=== PATIENT | female | born 1990 | race Caucasian/White ===

== ENCOUNTER 2016-09-12 14:21 | Outpatient (RCR) | payer OTHER ==
[~2016-09-12 14:21] MED LIST: /DIVA50TA PO; ALBU17IN INH; ALBUPOW9 INH; BACL10TA2 PO; CELE40TA PO; CIPR500T89 PO; FLAG500T PO; HYDR-3713 PO; KLON0.5T PO; KLON1TAB PO; LITH300C PO; LITH300T PO; LITHIUM PO; OLAN20TA PO; OMEP40CA2 PO; PRAZ1CAP PO; SYMB80AE INH; TIZA4CAP3 PO; TRAZ150T PO; TRAZ50TA4 PO; TYLE325T5 PO; ULTR50TA PO; WELL75TA PO; ZOFR4TAB3 PO; ZYPR10TA PO; ZYPR15TA PO
== END 2016-10-07 | disposition home or self-care (01) ==
LOC: M OUTALCOH 14:21
PROVIDERS: ATTEND Psychiatry & Neurology Psychiatry
DX: F10.20 Alcohol dependence, uncomplicated (principal); F11.20 Opioid dependence, uncomplicated; F12.20 Cannabis dependence, uncomplicated; F16.20 Hallucinogen dependence, uncomplicated

== ENCOUNTER → 2016-12-29 | Outpatient (CLI) | payer OTHER | LOC: M OUTALCOH 09:02 | PROVIDERS: ATTEND Psychiatry & Neurology Psychiatry | DX: Z13.9 Encounter for screening, unspecified (principal); F10.20 Alcohol dependence, uncomplicated; F12.20 Cannabis dependence, uncomplicated; F15.20 Other stimulant dependence, uncomplicated ==

== ENCOUNTER → 2017-01-08 | Outpatient (REF) | payer OTHER ==
[2017-01-08 12:55] LABS: ALBUMIN 3.9 GM/DL (3.2-5.2); ALBUMIN/GLOBULIN RATIO 1.11 (1.00-1.93); ALKALINE PHOSPHATASE 71 U/L (45-117); ALT/SGPT 16 U/L (12-78); AST/SGOT 13 U/L (15-37); BILIRUBIN,DIRECT < 0.1 MG/DL (0.0-0.2); BILIRUBIN,TOTAL 0.3 MG/DL (0.2-1.0); TOTAL PROTEIN 7.4 GM/DL (6.4-8.2)
[2017-01-12 10:09] LABS: HEPATITIS C QUANTITATION HCV Not Detected IU/mL (.)
== END ==
LOC: M LABDRAWP 11:26
PROVIDERS: ATTEND Nurse Practitioner Family
DX: R76.8 Other specified abnormal immunological findings in serum (principal)

== ENCOUNTER 2017-01-29 09:00 | Outpatient (RCR) | payer OTHER | END 2017-02-04 | LOC: M OUTALCOH 09:00 | PROVIDERS: ATTEND Psychiatry & Neurology Psychiatry | DX: F10.20 Alcohol dependence, uncomplicated (principal); F12.20 Cannabis dependence, uncomplicated; F15.20 Other stimulant dependence, uncomplicated; F17.200 Nicotine dependence, unspecified, uncomplicated ==

== ENCOUNTER 2017-02-27 10:00 | Outpatient (RCR) | payer MEDICAID ==
[~2017-02-27 10:00] MED LIST changes: +TRAZ50TA11 PO; -TRAZ50TA4 PO
== END 2017-03-06 | disposition home or self-care (01) ==
LOC: M OUTALCOH 10:00
PROVIDERS: ATTEND Psychiatry & Neurology Psychiatry
DX: F10.20 Alcohol dependence, uncomplicated (principal); F12.20 Cannabis dependence, uncomplicated; F15.20 Other stimulant dependence, uncomplicated; F17.200 Nicotine dependence, unspecified, uncomplicated

== ENCOUNTER → 2017-03-27 | Outpatient (CLI) | payer MEDICAID, OTHER ==
--- NOTE | 2017-03-27 19:49 | REP ---
KUB ABDOMEN AND PELVIS: KUB film of the abdomen and pelvis is performed. There is mild scattered fecal material throughout the colon. No dilated small bowel loops are seen. There is a phlebolith in the left pelvis. Visualized osseous structures are unremarkable. IMPRESSION: Mild fecal retention with no evidence of bowel obstruction. Signed by Moncho Alejandra MD 03/27/2017 08:21 P
== END ==
LOC: M WUC 17:42
PROVIDERS: ATTEND Physician Assistant
DX: K59.00 Constipation, unspecified (principal)

== ENCOUNTER 2017-04-02 09:00 | Outpatient (RCR) | payer MEDICAID | END 2017-04-06 | LOC: M OUTALCOH 09:00 | PROVIDERS: ATTEND Psychiatry & Neurology Psychiatry | DX: F10.20 Alcohol dependence, uncomplicated (principal); F12.20 Cannabis dependence, uncomplicated; F15.20 Other stimulant dependence, uncomplicated; F17.200 Nicotine dependence, unspecified, uncomplicated ==

== ENCOUNTER 2017-05-05 10:00 | Outpatient (RCR) | payer MEDICAID | END 2017-05-07 | LOC: M OUTALCOH 10:00 | PROVIDERS: ATTEND Psychiatry & Neurology Psychiatry | DX: F10.20 Alcohol dependence, uncomplicated (principal); F12.20 Cannabis dependence, uncomplicated; F15.20 Other stimulant dependence, uncomplicated; F17.200 Nicotine dependence, unspecified, uncomplicated ==

== ENCOUNTER 2017-05-29 10:00 | Outpatient (RCR) | payer MEDICAID | END 2017-06-06 | LOC: M OUTALCOH 10:00 | PROVIDERS: ATTEND Psychiatry & Neurology Psychiatry | DX: F10.20 Alcohol dependence, uncomplicated (principal); F12.20 Cannabis dependence, uncomplicated; F15.20 Other stimulant dependence, uncomplicated; F17.200 Nicotine dependence, unspecified, uncomplicated ==

== ENCOUNTER → 2017-12-01 | Outpatient (CLI) | payer OTHER, MEDICAID | LOC: M WUC 18:06 | DX: M79.644 Pain in right finger(s) (principal); M79.89 Other specified soft tissue disorders | CPT/HCPCS: 73140 ==

== ENCOUNTER → 2018-10-11 | Outpatient (CLI) | payer OTHER ==
[~2018-10-11] MED LIST changes: -OLAN20TA PO; +OLAN20TA14 PO; +TIZA4CAP PO; -TIZA4CAP3 PO; +TRAZ-160 PO; -TRAZ50TA11 PO; +ZOFR4TAB14 PO; -ZOFR4TAB3 PO
--- NOTE | 2018-10-12 02:30 | REP ---
Clinical: Bilateral hand pain Technique: AP, lateral, bilateral oblique views right and left hand . Findings: The osseous structures and joint spaces of the bilateral hands appear normal. No obvious acute fracture or dislocation. Moderate bilateral soft tissue swelling is appreciated on the right hand primarily noted involving the second and third digits and more diffusely noted on the left hand. No subcutaneous emphysema or radiodense foreign body. Impression: Moderate bilateral soft tissue swelling Electronically Signed by Chris Machado MD 10/12/2018 02:21 A
== END ==
LOC: M WUC 11:12
PROVIDERS: ATTEND Physician Assistant
DX: M25.549 Pain in joints of unspecified hand (principal)

== ENCOUNTER → 2019-06-22 | Outpatient (REF) | payer OTHER ==
[~2019-06-22] MED LIST changes: -/DIVA50TA PO; +CLON1TAB8; +DEPA1TAB3 PO; +HYDR100C; +RISP1TAB3 PO; -TRAZ-160 PO; +TRAZ-252 PO; +VENTAER INH
[2019-06-24 19:25] LABS: HPV HYBRID CAPTURE II Negative (Negative)
== END ==
LOC: M SFHCWAGY 11:05
PROVIDERS: ATTEND Nurse Practitioner Family
DX: R87.610 Atypical squamous cells of undetermined significance on cytologic smear of cervix (ASC-US) (principal); N76.0 Acute vaginitis; R87.619 Unspecified abnormal cytological findings in specimens from cervix uteri

== ENCOUNTER → 2019-06-22 | Outpatient (REF) | payer OTHER ==
[2019-06-22 16:27] LABS: CHLAMYDIA DNA AMPLIFICATION NEGATIVE (NEGATIVE); GC DNA AMPLIFICATION NEGATIVE (NEGATIVE)
== END ==
LOC: M SFHCWAGY 14:07
PROVIDERS: ATTEND Nurse Practitioner Family
DX: Z11.3 Encounter for screening for infections with a predominantly sexual mode of transmission (principal)

== ENCOUNTER → 2019-06-28 | Outpatient (CLI) | payer OTHER ==
--- NOTE | 2019-06-28 16:15 | REP ---
ULTRASOUND LEFT BREAST: Real-time sonographic evaluation of the left breast is performed. Reportedly there is a palpable lump in the region of 3-o'clock. Fibroglandular tissue is seen in this region. No discrete cystic or solid nodule is seen. IMPRESSION: ACR 2 benign. At the site of the reported palpable lump 3-o'clock region left breast there is fibroglandular tissue without a discrete cystic or solid mass. A negative ultrasound should not deter biopsy if there is a clinically suspicious palpable mass present. Clinical correlation and followup recommended. Electronically Signed by Moncho Alejandra MD 06/29/2019 12:29 P
== END ==
LOC: M RAD 14:46
PROVIDERS: ATTEND Nurse Practitioner Family
DX: N63.21 Unspecified lump in the left breast, upper outer quadrant (principal); N64.4 Mastodynia

== ENCOUNTER 2019-06-30 09:41 | Day surgery (SDC) | payer OTHER ==
[~2019-06-30] VITALS: Ht 158.8 cm; Wt 63.5 kg
[2019-06-30] MEDS ORDERED: LR 1,000 ML IV ONE (11:00)
[2019-06-30] MEDS ORDERED: fentaNYL 100 MCG/2 ML INJECTION (J3010) As Ordered ONE ×2 (11:46→12:44)
[2019-06-30] MEDS ORDERED: LIDOCAINE 2% INJ 100 MG/5 ML SDV (FOR ANES.) As Ordered ONE (11:46)
[2019-06-30] MEDS ORDERED: PROPOFOL 200 MG/20 ML VIAL As Ordered ONE (11:46)
[2019-06-30] MEDS ORDERED: MIDAZOLAM INJ 2 MG/2 ML VIAL (J2250) As Ordered ONE (11:47)
[2019-06-30] MEDS ORDERED: dexameTHASONE 4 MG/ML 1ML VIAL (J1100) As Ordered ONE (11:47)
[2019-06-30] MEDS ORDERED: ONDANSETRON 4MG/2ML VIAL (J2405) As Ordered ONE (11:47)
[2019-06-30] MEDS ORDERED: ROCURONIUM BROMIDE 50 MG/5 ML VIAL As Ordered ONE (11:58)
[2019-06-30] MEDS ORDERED: ACETAMINOPHEN 1000MG 100ML IV BTL (OFIRMEV) (J0131 PER 10MG) As Ordered ONE (11:58)
[2019-06-30] MEDS ORDERED: METOCLOPRAMIDE INJ 10MG/2ML VIAL (J2765) As Ordered ONE (11:59)
[2019-06-30] MEDS ORDERED: SCOPOLAMINE 1MG TRANSDERMAL PATCH As Ordered ONE (12:15)
[2019-06-30] MEDS ORDERED: SUGAMMADEX SODIUM 500 MG/5 ML VIAL (BRIDION) As Ordered ONE (12:50)
[2019-06-30] MEDS ORDERED: fentaNYL 100 MCG/2 ML INJECTION (J3010) IV PRN (13:30)
[2019-06-30] MEDS ORDERED: LR 1,000 ML IV SCH ×2 (13:30→14:31)
[2019-06-30] MEDS ORDERED: PERCOCET 5MG/325MG TAB PO PRN (13:30)
[2019-06-30] MEDS ORDERED: ONDANSETRON 4MG/2ML VIAL (J2405) IV PRN (13:30)
[2019-06-30 13:39] VITALS: BP 156/99
[2019-06-30] MEDS ORDERED: SCOPOLAMINE 1MG TRANSDERMAL PATCH TOP ONE ×2 (14:00→16:30)
--- NOTE | 2019-07-05 17:18 | RO ---
DATE OF PROCEDURE: 06/30/2019 PREOPERATIVE DIAGNOSIS: Adenoid hypertrophy. POSTOPERATIVE DIAGNOSIS: Adenoid hypertrophy. PROCEDURE PERFORMED: Adenoidectomy. SURGEON: Samson Tyson MD OPERATING ENGINEER: ANESTHESIA: General CLINICAL PREAMBLE: This 29-year-old woman presented with a history of chronic nasal congestion. Physical examination revealed adenoid hypertrophy. She had not responded to any medical therapy, including nasal steroid spray. Management options were reviewed and adenoidectomy have been discussed. Patient understood and consented to the procedure. DESCRIPTION OF PROCEDURE: Patient was identified in preoperative holding and brought to the operating room in stable condition. In supine position on the operating table, patient received general anesthesia followed by orotracheal intubation without incident. Patient was prepped and draped in the usual fashion for the procedure. The Kimberley-Beto mouth gag was inserted and suspended. The red rubber catheter was inserted via the right naris to retract the soft palate. Using a mirror, the hypertrophic adenoid tissue was visualized. Using the Coblator wand set at 7 for Coblation and 3 for coagulation, the hypertrophic adenoid tissue was ablated. Hemostasis was achieved. At the end of the procedure, sponge and instrument counts were correct. No complication was encountered. Estimated blood loss was less than 10 mL. General anesthesia was reversed, and patient was extubated and brought to the recovery room in stable condition.
== END 2019-06-30 14:13 | disposition home or self-care (01) ==
LOC: M SDC 09:41
PROVIDERS: ATTEND Otolaryngology
DX: J35.2 Hypertrophy of adenoids (principal); K58.8 Other irritable bowel syndrome; K21.9 Gastro-esophageal reflux disease without esophagitis; F41.9 Anxiety disorder, unspecified; F31.9 Bipolar disorder, unspecified; F32.9 Major depressive disorder, single episode, unspecified; J45.909 Unspecified asthma, uncomplicated; Z88.1 Allergy status to other antibiotic agents; Z88.8 Allergy status to other drugs, medicaments and biological substances; Z88.7 Allergy status to serum and vaccine; Z79.899 Other long term (current) drug therapy; F17.218 Nicotine dependence, cigarettes, with other nicotine-induced disorders
CPT/HCPCS: 42831; J0131; J1100; J2250; J2405; J2765; J3010

== ENCOUNTER 2019-09-08 01:41 | Emergency (ER) | payer OTHER, SELFPAY ==
[~2019-09-08] VITALS: Ht 157.5 cm; Wt 65.9 kg
[2019-09-08 01:58] LABS: BASO % 0.6 % (0.0-1.0); EOS # 0.2 10^3/uL (0.0-0.5); EOS % 2.2 % (0.0-3.0); HEMOGLOBIN 14.1 g/dl (12.0-15.5); LYMPH # 3.2 10^3/uL (1.5-5.0); LYMPH % 46.5 % (24.0-44.0); MEAN CORPUSCULAR HEMOGLOBIN 29.7 pg (27.0-33.0); MEAN CORPUSCULAR VOLUME 92.6 fl (80.0-96.0); MONO # 0.4 10^3/uL (0.0-0.8); MONO % 6.3 % (0.0-5.0); NEUTROPHILS % 44.1 % (36.0-66.0); PLATELET COUNT, AUTOMATED 266 10^3/uL (150-450); RED BLOOD COUNT 4.75 10^6/uL (4.00-5.40); WHITE BLOOD COUNT 6.8 10^3/uL (4.0-10.0)
[2019-09-08] MEDS ORDERED: IPRATROPIUM 0.5MG/ALBUTEROL 2.5MG INH SOL UD 3ML (DUONEB)(J7620) NEB ONE (02:15)
[2019-09-08 02:25] LABS: VENOUS BASE EXCESS 0.5 (-2.0-2.0); VENOUS HCO3 23.5 MEQ/L (23.0-27.0); VENOUS O2 SATURATION 95.2 % (60.0-80.0); VENOUS PARTIAL PRESSURE CO2 33.4 mmHg (38.0-50.0); VENOUS PARTIAL PRESSURE O2 68.4 mmHg (30.0-50.0); VENOUS PH 7.466 UNITS (7.330-7.430); VENOUS STANDARD HCO3 24.9 MEQ/L; VENOUS TOTAL CO2 24.6 MEQ/L (24.0-28.0)
[2019-09-08 02:30] LABS: ACETAMINOPHEN LEVEL < 2.0 UG/ML (10.0-30.0); ALBUMIN 3.6 GM/DL (3.2-5.2); ALT/SGPT 32 U/L (12-78); BILIRUBIN,DIRECT < 0.1 MG/DL (0.0-0.2); BILIRUBIN,TOTAL 0.3 MG/DL (0.2-1.0); BLOOD UREA NITROGEN 16 MG/DL (7-18); CALCIUM LEVEL 9.1 MG/DL (8.5-10.1); CARBON DIOXIDE LEVEL 24 MEQ/L (21-32); CHLORIDE LEVEL 107 MEQ/L (98-107); CPK CREATINE PHOSPHOKINASE 150 U/L (26-192); CREATININE FOR GFR 0.96 MG/DL (0.55-1.30); ETHYL ALCOHOL (ETHANOL) < 0.003 % (0.000-0.010); GLOMERULAR FILTRATION RATE > 60.0 (>60); GLUCOSE, FASTING 133 MG/DL (70-100); POTASSIUM SERUM 3.6 MEQ/L (3.5-5.1); SALICYLATE LEVEL 2.8 MG/DL (5.0-30.0); SODIUM LEVEL 142 MEQ/L (136-145)
[2019-09-08] MEDS ORDERED: ONDANSETRON 4MG/2ML VIAL (J2405) IV ONE (03:00)
[2019-09-08 03:22] LABS: AMPHETAMINES LEVEL URINE NEGATIVE (NEGATIVE); BARBITURATES URINE NEGATIVE (NEGATIVE); BENZODIAZEPINES URINE NEGATIVE (NEGATIVE); CANNABINOIDS URINE POSITIVE (NEGATIVE); COCAINE METABOLITE URINE NEGATIVE (NEGATIVE); METHADONE URINE NEGATIVE (NEGATIVE); OPIATES URINE POSITIVE (NEGATIVE); PHENCYCLIDINE URINE NEGATIVE (NEGATIVE)
[2019-09-08 05:49] VITALS: BP 111/69
--- NOTE | 2019-09-08 05:55 | ECGEPIP ---
[facility] - ED Test Date: 2019-09-08 Pat Name: BHARAT MENDEZ Department: Room: - Gender: Female Box Annealer: PRISCILA : 1990 Requested By: JOHNSON Marcos Order Number: [id number] Reading MD: Bobby Beard Measurements Intervals [place] Rate: 75 P: 47 DC: 152 QRS: 37 QRSD: 91 T: 41 QT: 388 QTc: 436 Interpretive Statements SINUS RHYTHM WITH SINUS ARRHYTHMIA SIMILAR TO 08/15/16 Electronically Signed on 09-08-2019 5:55:24 EST by Bobby Beard
--- NOTE | 2019-09-08 07:09 | REP ---
Clinical: Overdose . Comparison: 08/15/2016 . Technique: PA and lateral. Findings: The mediastinum and cardiac silhouette are normal. The lung harris are clear and without acute consolidation, effusion, or pneumothorax. The skeletal structures are intact and normal. Impression: 1. No acute cardiopulmonary process. Electronically Signed by Chris Machado MD 09/08/2019 07:00 A
== END 2019-09-08 06:26 | disposition home or self-care (01) ==
LOC: M ED 01:41
DX: T40.1X1A Poisoning by heroin, accidental (unintentional), initial encounter (principal); F11.10 Opioid abuse, uncomplicated; F12.10 Cannabis abuse, uncomplicated; F17.200 Nicotine dependence, unspecified, uncomplicated; J45.909 Unspecified asthma, uncomplicated; Z91.09 Other allergy status, other than to drugs and biological substances; Z88.1 Allergy status to other antibiotic agents; Z88.7 Allergy status to serum and vaccine; Z88.8 Allergy status to other drugs, medicaments and biological substances
CPT/HCPCS: 36415; 71046; 80048; 80076; 80307; 82550; 82803; 83605; 84443; 84702; 85025; 93005; 93041; 94640; 99285; G0480; J2405

== ENCOUNTER → 2019-10-20 | Outpatient (REF) | payer OTHER ==
[2019-10-21 00:03] LABS: CHLAMYDIA DNA AMPLIFICATION NEGATIVE (NEGATIVE); GC DNA AMPLIFICATION NEGATIVE (NEGATIVE)
== END ==
LOC: M SFHCWAGY 16:52
PROVIDERS: ATTEND Nurse Practitioner Family
DX: Z11.3 Encounter for screening for infections with a predominantly sexual mode of transmission (principal)

== ENCOUNTER → 2019-11-10 | Outpatient (CLI) | payer OTHER ==
--- NOTE | 2019-11-10 15:20 | REP ---
Pelvic sonography: History: Uterine bleeding. Abnormal bleeding. Findings: Transabdominal and transvaginal scanning are performed. Uterine dimensions are normal measured at 6.0 x 2.4 x 3.3 cm. Endometrial echo is 0.6 cm thick. Fluid is seen in the endometrial cavity at the time of the scan. No free fluid is seen in the cul-de-sac. Right ovary is normal measuring 2.4 x 1.7 x 1.7 cm. Left ovarian dimensions are 1.8 x 1.2 x 2.1 cm. In the left adnexa there is a septated complex cyst visualized measuring 5.2 x 2.4 cm. Left-sided hydrosalpinx is suspected. Impression: Possible left-sided hydrosalpinx. Endometrial fluid noted during scan. No focal uterine mass is seen. Ovaries appear normal.
== END ==
LOC: M WHC 11:25
PROVIDERS: ATTEND Nurse Practitioner Family
DX: N93.9 Abnormal uterine and vaginal bleeding, unspecified (principal)

== ENCOUNTER → 2020-01-03 | Outpatient (CLI) | payer OTHER ==
--- NOTE | 2020-01-03 18:33 | REP ---
Clinical: History of left ovarian cyst. Comparison: 11/10/2019 Technique: Transabdominal pelvic ultrasound followed by transvaginal examination for better evaluation of the endometrium and adnexa with color Doppler evaluation of the ovaries. Findings: Bladder is collapsed. Normal anteverted uterus measures 6.9 x 2.5 x 3.6 cm . The endometrial complex measures 7.2 mm thickness. No discrete uterine or endometrial abnormalities are appreciated. Right ovary is normal in appearance and vascularity measuring 3.1 x 2.2 x 2.6 cm and includes 1.9 cm physiologic cyst / follicle. Left ovary measures 2.9 x 1.3 x 2.6 cm and includes complex septated cystic structure(s) measuring approximately 4.7 x 2.8 x 2.7 cm which is relatively unchanged as compared to prior examination. No pelvic fluid. Impression: 1. Physiologic cyst / follicle in the right ovary. 2. Complex cystic multi septated structure in the left ovary/adnexa again identified similar to prior examination again suggesting cyst and possible adjacent hydrosalpinx.
== END ==
LOC: M WHC 11:33
PROVIDERS: ATTEND Nurse Practitioner Family
DX: N83.202 Unspecified ovarian cyst, left side (principal); N83.201 Unspecified ovarian cyst, right side

== ENCOUNTER → 2020-02-09 | Outpatient (CLI) | payer OTHER, MEDICAID ==
[2020-02-09 15:47] LABS: BASO # 0.1 10^3/uL (0.0-0.2); BASO % 0.8 % (0.0-1.0); EOS # 0.1 10^3/uL (0.0-0.5); EOS % 1.7 % (0.0-3.0); HEMATOCRIT 42.2 % (36.0-47.0); HEMOGLOBIN 14.2 g/dl (12.0-15.5); LYMPH % 27.6 % (24.0-44.0); MEAN CORPUSCULAR HEMOGLOBIN 31.3 pg (27.0-33.0); MEAN CORPUSCULAR HGB CONC 33.6 g/dl (32.0-36.5); MONO # 0.4 10^3/uL (0.0-0.8); MONO % 5.8 % (0.0-5.0); NEUTROPHILS # 4.6 10^3/uL (1.5-8.5); PLATELET COUNT, AUTOMATED 284 10^3/uL (150-450); RED BLOOD COUNT 4.54 10^6/uL (4.00-5.40); WHITE BLOOD COUNT 7.2 10^3/uL (4.0-10.0)
[2020-02-09 16:14] LABS: ALBUMIN 3.6 GM/DL (3.2-5.2); ALT/SGPT 121 U/L (12-78); BILIRUBIN,TOTAL 0.2 MG/DL (0.2-1.0); BLOOD UREA NITROGEN 12 MG/DL (7-18); CALCIUM LEVEL 8.7 MG/DL (8.5-10.1); CARBON DIOXIDE LEVEL 26 MEQ/L (21-32); CHLORIDE LEVEL 107 MEQ/L (98-107); CHOLESTEROL LEVEL 213 MG/DL (<200); CHOLESTEROL RISK RATIO 3.435 (<5); FREE T4 0.91 NG/DL (0.76-1.46); GLOMERULAR FILTRATION RATE > 60.0 (>60); GLUCOSE, FASTING 108 MG/DL (70-100); HDL CHOLESTEROL 62 MG/DL (>40); LDL CHOLESTEROL 122 MG/DL (<100); NON-HDL-C 151 MG/DL; POTASSIUM SERUM 4.1 MEQ/L (3.5-5.1); SODIUM LEVEL 141 MEQ/L (136-145); THYROID STIMULATING HORMONE 0.461 uIU/ML (0.358-3.740); TOTAL PROTEIN 6.9 GM/DL (6.4-8.2); TRIGLYCERIDES LEVEL 143 MG/DL (<150)
[2020-02-09 16:16] LABS: FOLATE 15.1 NG/ML; TOTAL 25(OH) VITAMIN D 13.6 NG/ML (30.0-100.0); VITAMIN B12 LEVEL 602 PG/ML
[2020-02-09 17:31] LABS: HEMOGLOBIN A1c 5.2 %
== END ==
LOC: M PLALAB 12:50
PROVIDERS: ATTEND Physician Assistant
DX: R20.2 Paresthesia of skin (principal); R42 Dizziness and giddiness; I11.9 Hypertensive heart disease without heart failure; Z13.220 Encounter for screening for lipoid disorders; Z13.29 Encounter for screening for other suspected endocrine disorder

== ENCOUNTER → 2020-06-24 | Outpatient (REF) | payer OTHER, MEDICAID | LOC: M WUC 17:29 → EEVIPCON 17:29 | PROVIDERS: ATTEND Nurse Practitioner Family | DX: L03.115 Cellulitis of right lower limb (principal) ==

== ENCOUNTER → 2020-09-01 | Outpatient (CLI) | payer OTHER ==
[~2020-09-01] MED LIST changes: +RISP-8 PO; -RISP1TAB3 PO
== END ==
LOC: M LABSMTC 11:30
PROVIDERS: ATTEND Pediatrics
DX: Z20.828 Contact with and (suspected) exposure to other viral communicable diseases (principal)